=== PATIENT | female | born 1980 | race Hispanic/Latino ===

== ENCOUNTER 2016-09-22 01:28 | Inpatient (IN) | payer MEDICAID ==
[~2016-09-22] VITALS: Ht 152.4 cm; Wt 68.5 kg
[2016-09-22] MEDS ORDERED: Lactated Ringer's 1,000 ML IV PRN (09:14)
[2016-09-22] MEDS ORDERED: Oxytocin 10 Unit/mL Inj IM PRN (09:15)
[2016-09-22] MEDS ORDERED: Hemorrhage Kit, Post Partum XX ONE (09:15)
[2016-09-22] MEDS ORDERED: Oxytocin 30 Units/500 mL LR 30 UNITS in IV Premix 1 EACH IV PRN (09:15)
[2016-09-22] MEDS ORDERED: Carboprost 250 mCg/mL Inj IM PRN (09:15)
[2016-09-22] MEDS ORDERED: Sodium Chloride LOK Flush 10 mL Syringe IVFLUSH PRN (09:15)
[2016-09-22] MEDS ORDERED: diphenhydrAMINE 50 mg Capsule PO PRN (09:15)
[2016-09-22] MEDS ORDERED: Methylergonovine 0.2 mg/mL Inj IM PRN (09:15)
[2016-09-22] MEDS ORDERED: Ondansetron 2 mg/mL 2 mL Inj IVPUSH PRN (09:15)
[2016-09-22 13:15] LABS: Mean Corpuscular Hemoglobin 33.8 pg (27.0-35.0); Mean Corpuscular Volume 97.1 fL (81-100)
[2016-09-22] MEDS: Lactated Ringer's 1,000 ML IV SCH ×3 (16:11→22:38)
--- NOTE | 2016-09-22 18:36 | HP ---
[address] [address] HISTORY AND PHYSICAL PATIENT: DIPTI ROSALES : 1980 MR#: [id number] ADMIT: 09/22/2016 JOB ID: [id number] DATE: 09/22/2016 ADMISSION DIAGNOSIS: Induction of labor at 41 weeks and 1 day gestational age for trial of labor after section. HISTORY OF PRESENT ILLNESS: The patient is a 36-year-old 5, para 3-0-1-4 at 41 weeks and 1 day gestational age by 14 weeks ultrasound. Had her complicated with the followin. Primary low transverse for twin gestation in 2002 preceded by two successful vaginal deliveries at term in 2002 and 2004. 2. History of elective termination of at 12 weeks with suction D and C. 3. The patient initially desired permanent sterilization and consents were signed but then she changed her mind. 4. SHAMAR of 7.3 cm on September 14, 2016 at 40 weeks gestational age. Patient opted to proceed with induction of labor. She is interested in trial of labor after section. Consent signed for TOLAC and induction of labor. All questions answered. The patient denied any leakage of fluid, vaginal bleeding, no contractions. She reports movements. PAST OBSTETRICAL HISTORY: 1-In 2002, a full-term ended with spontaneous vaginal delivery home in [place]. 2-In 2004, full-term ended with spontaneous vaginal delivery in [place] 6 pound baby, female. No complications. 3- (2012), twin gestation ended at 37 weeks with primary low transverse section at [facility]. No complications. 4- (2013), a 12 week ended with elective termination of and suction D and C, and the current . PAST GYNECOLOGIC HISTORY: No history of abnormal Pap smears. No history of STDs. PAST MEDICAL HISTORY: Heartburn. PAST SURGICAL HISTORY: Primary section x1 and suction D and C x1. MEDICATIONS: vitamins. ALLERGIES: No known drug allergies. SOCIAL HISTORY: Denied any alcohol consumption. Denied any drugs of abuse. Denied any cigarette smoking. LABORATORIES: O-positive, rubella immune, serology nonreactive, hepatitis B surface antigen negative. HIV nonreactive. Gonorrhea, chlamydia cultures negative. Antibody screen negative. Rubella immune. QUAD screen negative. GBS cultures negative. Pap smear negative cytology, negative high-risk HPV. Urine cultures negative. PHYSICAL EXAMINATION: Patient is alert, oriented x3. Vital signs are 111/74 for blood pressure, respirations are 14, pulse is 78, temperature 36.5 degrees centigrade. Heart is regular rate and rhythm. Positive S1, S2. Lungs clear to auscultation bilaterally. Abdomen: Gravid uterus, nontender. Positive bowel sounds. Lower extremities: No calf tenderness appreciated bilaterally. Cervical exam: 2 cm dilated cervix, 50% effaced, -3 station. Vertex presentation. Posterior position medium consistency. heart tracing is showing baseline of 130 beats per minute, positive accelerations, no decelerations, moderate variability, reactive tracing. Discussed induction options with the patient in light of her prior section. She agreed to proceed with cervical ripening balloon. Gannon's score at the time of the induction was 3. Cervical ripening balloon was inserted. 80 cc of normal saline injected in the uterine balloon, and then 80 cc injected in the vaginal balloon. The patient tolerated the insertion well. Will keep the balloon for 12 hours or less if the balloon falls out earlier and will follow with Pitocin. ASSESSMENT/PLAN: The patient is a 36-year-old, 5, para 3-0-1-4 at 41 weeks and 1 day gestational age by 14 week ultrasound. Prior section x1 preceded by two successful vaginal deliveries at term. Patient consented for trial of labor after section. 1- Induction of labor started with cervical ripening balloon to be followed by Pitocin. 2. Group B strep cultures negative. 3. Reactive heart tracing. Will continue with external monitoring. 4. Discussed intrapartum analgesia options with the patient. She opted for epidural anesthesia, anesthesia notified. All the above discussed in details with the patient including risks for uterine rupture and success rate for trial of labor after . The patient agreed to the above. A hospital-provided hvac mechanical engineer helped with counseling. CARLOS
[2016-09-22] MEDS ORDERED: Lidocaine 1% 50 mL Inj NERVEBLOCK ONE (20:20)
--- NOTE | 2016-09-22 22:06 | PCM.PNOBIP ---
Subjective Date of Service Sep 22, 2016 Subjective Requesting epidural. Group B Strep Results: Negative Rubella: Immune Blood Type: O (positive) RH Type: Positive Labs Laboratory Tests 09/22/16 07:40: White Blood Count 6.4, Red Blood Count 4.17, Hemoglobin 14.1, Hematocrit 40.5, Mean Corpuscular Volume 97.1, Mean Corpuscular Hemoglobin 33.8, Mean Corpuscular Hemoglobin Concent 34.8, Red Cell Distribution Width 13.0, Platelet Count 117 Exam Vital Signs Vital Signs Contraction frequency in minutes: MVUs: Vital Signs: VS reviewed, stable Heart Tracings Heart Tones Baseline 140 bpm Heart Rate Variability: Moderate Heart Rate Accelleration: Present Heart Rate Deceleration: Absent Heart Rate Category: I Tocometry/IUPC Contraction frequency in minutes: MVUs: Sterile Vaginal Exam Cervical Dilation: 5 cms (5-6) Cervical Effacement: 50 % Station: -3 Exam Abdomen: Abdomen non-tender General: Alert, Oriented X3 OB Intrapartum Assessment/Plan Assessment 36 Y/O at 40w1d IOL for late term . TOLAC (previous CD for twins after 2 ) Desires Epidural S/P Aguirre balloon, fill down at 1545 and Pitocin was started at 1600. Continue to increase Pitocin per low dose protocol maximum dose 20 milliunit. Continue FHT and [place] monitoring. Aaliyah Mclaughlin MD Sep 22, 2016 22:06
[2016-09-22] MEDS ORDERED: Lactated Ringer's 500 ML IV ONE (22:12)
[2016-09-22] MEDS ORDERED: EPHEDrine Sulfate 50 mg/mL Inj IVPUSH PRN (22:15)
[2016-09-22] MEDS ORDERED: fentaNYL 2 mCg/mL-Bupiv 0.125% 100 ML EPIDURAL SCH (22:15)
[2016-09-22] MEDS ORDERED: Atropine 1 mg/10 mL (Code) Syringe IVPUSH PRN (22:15)
--- NOTE | 2016-09-22 22:15 | PCM.HPANE ---
Patient Data Surgeon Admitting Provider:Timo Curiel MD Attending Provider:Timo Curiel MD Primary Care Physician:Aaliyah Mclaughlin MD Other Provider:Alisia Dozier Anesthesia Reason for Visit Induction INDUCTION Ht/WT & BMI Body Mass Index Allergies Coded Allergies: No Known Allergies (Unverified , 03/06/12) History Smoking Status: Unknown if Ever Smoker Stop/Bang Risk Assessment Category Category 1A: Patient has history of documented sleep apnea, and HAS NOT received any narcotic, sedative or anesthesia administration during this stay. Category 1B: Patient has history of documented sleep apnea, and HAS received any narcotic , sedative or anesthesia administration during this stay Category 2: Patient has SUSPECTED Obstructive Sleep Apnea, and HAS received any narcotic , sedative or anesthesia administration during this stay. Category 3: Patient has SUSPECTED Obstructive Sleep Apnea and HAS NOT received narcotic, sedative or anesthesia administration during this stay. Category 4: Outpatient in Procedural Areas with known sleep apnea or who screen positive for High Risk via the STOP/BANG questionnaire. Exam Exam General Appearance: Alert, Oriented X3, Cooperative, No Acute Distress HEENT/AIRWAY: MP 2 Lungs: Clear to Auscultation, Normal Air Movement Heart: Exam Unremarkable, Regular Rate/Rhythm, No Murmurs/Rubs/Gallops Meds/Labs/Diagnostics Admission Meds Current Medications Lactated Ringer's (Lr) 1,000 ml @ 125 mls/hr Q8H IV Last administered on t 20:38; Start 09/22/16 at 09:11 Labs Test 09/22/16 07:40 White Blood Count 6.4th/mm3 (3.8-10.1) Red Blood Count 4.17mil/mm3 (3.90-5.20) Hemoglobin 14.1g/dL (12.0-15.6) Hematocrit 40.5% (35.0-46.0) Mean Corpuscular Volume 97.1fL (81-100) Mean Corpuscular Hemoglobin 33.8pg (27.0-35.0) Mean Corpuscular Hemoglobin Concent 34.8% (32.0-37.0) Red Cell Distribution Width 13.0% (12.3-15.4) Platelet Count 117bil/L (150-400) Plan Impression Patient chart reviewed, patient interviewed and anesthestic plan with risks, benefits, and alternatives discussed, and informed consent obtained. ASA Physical Status: ASA1 Normal Healthy Anesthetic Plan: Epidural Bene/Risks/Altern/Consents: Yes HP Complete Prior to Induction: Yes Other Term multip induction TOLAC, uncomplicated to date in active labor requesting epidural analgesia Lcai Olivo MD Sep 22, 2016 22:15
[2016-09-23] MEDS: Lactated Ringer's 1,000 ML IV SCH ×2 (01:11→06:12)
[2016-09-23] MEDS ORDERED: Lactated Ringer's 1,000 ML IV SCH (05:27)
[2016-09-23] MEDS ORDERED: Witch Hazel-Glycerin Pads TOPICAL PRN (05:30)
[2016-09-23] MEDS ORDERED: Methylergonovine 0.2 mg/mL Inj IM PRN (05:30)
[2016-09-23] MEDS ORDERED: Carboprost 250 mCg/mL Inj IM PRN (05:30)
[2016-09-23] MEDS ORDERED: Benzocaine (Dermoplast) 20% 60 Gm Spray TOPICAL PRN (05:30)
[2016-09-23] MEDS ORDERED: Oxytocin 10 Unit/mL Inj IM PRN (05:30)
[2016-09-23] MEDS ORDERED: Oxytocin 30 Units/500 mL LR 30 UNITS in IV Premix 1 EACH IV PRN (05:30)
[2016-09-23] MEDS ORDERED: Hemorrhage Kit, Post Partum XX ONE (05:30)
[2016-09-23] MEDS: Ascorbic Acid 500 mg Tablet PO SCH ×2 (07:27→21:12)
[2016-09-23] MEDS: LANOlin HPA 7 Gm Ointment TOPICAL PRN (07:28)
--- NOTE | 2016-09-23 16:10 | OP ---
[address] [address] OPERATIVE REPORT PATIENT: DIPTI ROSALES : 1980 MR#: [id number] ADMIT: 09/22/2016 JOB ID: [id number] DATE OF SURGERY: 09/23/2016 PREOPERATIVE DIAGNOSIS(ES): 1. Intrauterine at 41 weeks and 2 days. 2. Previous section x1 for twin gestation preceded by two successful vaginal deliveries at term. 3. Desires trial of labor after section. POSTOPERATIVE DIAGNOSIS(ES): Status post vaginal after section. PROCEDURE: 1. Vaginal after section. 2. Repair of second-degree perineal laceration. ANESTHESIA: Epidural. SURGEON: Aaliyah Mclaughlin MD. COMPLICATIONS: None. ESTIMATED BLOOD LOSS: 400 mL. OUTCOME: Male infant delivered in right occiput anterior position with no nuchal cord. Apgars 9 and 9 at one and five minutes, respectively. Weight 3707 g, equivalent to 8 pounds 3 ounces. DESCRIPTION OF PROCEDURE: This is a 36 years old, 5, now para 4-0-1-5. The patient was admitted on September 22, 2016, at 41 weeks and 1 day gestation for induction of labor for late term with previous history of one section done for twin gestation and was preceded by two successful vaginal deliveries at term. At admission, Gannon score was 3. Cervical ripening was started with Aguirre balloon that was placed at 8:30 a.m. The Aguirre balloon fell out at 1545. Pitocin was started at 1604. The patient progressed in labor and found to be 6 cm dilated, 60% effaced, and -1 at 1:43 a.m. of September 23, 2016. Artificial rupture of membranes was performed at 3 a.m. Cervix was 6, 80% and -1. The patient progressed to complete dilation and was at zero station at 4:12 a.m. With pelvic pressure and urge to push, the patient started to push under epidural anesthesia and delivered after pushing through 4-5 contractions. Delivered at 4:33 a.m. on September 23, 2016, over an intact perineum. Delivered a male infant in right occiput anterior position with no nuchal cord. Shoulders delivered without difficulty. Infant was placed on the maternal abdomen. Delayed cord clamping was performed after 1 minute. Cord blood was collected for typing. heart tones throughout labor were at most category 1 with variable decelerations during the second stage of labor with pushing during the last four contractions. was vigorous with a strong cry. Apgars were 9 at one minute and 9 at five minutes, respectively. Placenta was delivered spontaneously intact with three-vessel cord at 4:49 a.m. Oxytocin was started. Estimated blood loss 400 mL. Misoprostol was placed rectally, 800 mcg. Uterus was firm. Bleeding was minimal at this point. Perineal laceration of second-degree along the line of a previous medial lateral episiotomy scar was noted. The perineal laceration was repaired with a 3-0 Vicryl after local anesthesia with 1% lidocaine. All instruments, needles and sponges were correct x2. The patient and were recovering in the delivery room in a stable condition. Aaliyah Mohr MD, was present and scrubbed for the entire procedure. CARLOS
[2016-09-24] MEDS: oxyCODONE-Acetamin 5-325 mg Tablet PO PRN ×2 (00:21→11:15)
[2016-09-24 07:05] LABS: Mean Corpuscular Hemoglobin 34.2 pg (27.0-35.0)
--- NOTE | 2016-09-24 08:34 | PCM.DIOB ---
Obstetrical Disch Instruction Date of Service: Sep 24, 2016 Dates of Hospitalization Date of Hospital Admission Sep 22, 2016 at 07:16 Providers Admitting Physician: Timo Curiel MD Primary Care Physician: Aaliyah Mclaughlin MD Attending Physician: Timo Curiel MD Discharge Diagnosis Discharge Diagnosis status post successful vaginal delivery after section. Problems: Diet Discharge Diet: No restrictions Activity Discharge Activity-General: Pelvic Rest for 6 weeks, No lifting >10 pounds for 4-6 weeks Dressing and Incisional Care Hygiene: May shower, Perineal care, Sitz bath Follow Up Plan Follow-up Provider (F9): Timo Curiel MD Follow-up appointment: Weeks Call your provider for: Fever or Chills, Shortness of breath, Heavy vaginal bleeding, Heavy bleeding, Epigastric pain, Excessive constipation, Vaginal discomfort, Red painful breasts, Other (headache, change in vision, nausea or vomiting, leg swelling pain) Aaliyah Mclaughlin MD Sep 24, 2016 08:34
[2016-09-24] MEDS ORDERED: OXYC1TAB24 PO (08:36)
[2016-09-24] MEDS ORDERED: IBUP-1827 PO (08:36)
[2016-09-24] MEDS ORDERED: DOCU-41 PO (08:36)
[2016-09-24] MEDS: Ascorbic Acid 500 mg Tablet PO SCH (11:48)
[2016-09-24] MEDS: LANOlin HPA 7 Gm Ointment TOPICAL PRN (11:48)
[2016-09-24 12:21] VITALS: BP 108/67; PULSE 84; RESP 20
--- NOTE | 2016-09-24 13:06 | PCM.DC.OB ---
Obstetrical Discharge Summary Date of Service Sep 24, 2016 Date of hospital admission Sep 22, 2016 at 07:16 Date of Discharge: Sep 24, 2016 Providers Admitting Physician: Timo Curiel MD Primary Care Physician: Cindy Ray MD Attending Physician: Timo Curiel MD Hospital Course: The patient is a 36-year-old 5, now para 4-0-1-5 presented at at 41 weeks and 1 day gestational age for induction of labor. Status Post: 1. Vaginal after section. 2. Repair of second-degree perineal laceration. OUTCOME: Male delivered in right occiput anterior position with no nuchal cord. Apgars 9 and 9 at one and five minutes, respectively. Weight 3707 g, equivalent to 8 pounds 3 ounces.See delivery note for details. Complicated With: 1. Primary low transverse for twin gestation in 2002 preceded by two successful vaginal deliveries at term in 2002 and 2004. 2. History of elective termination of at 12 weeks with suction D and C. 3. The patient initially desired permanent sterilization and consents were signed but then she changed her mind towards the end of her and declined tubal sterilization. 4. SHAMAR of 7.3 cm on September 14, 2016 at 40 weeks gestational age. Discharge Day Exam: day number 1, patient is ambulating, tolerating regular diet without nausea or vomiting and voiding without difficulty. Pain was well controlled. No chest pain, no headache or change in vision. VS: stable. BP 108/67 HR 84 Respirations 20 Temp 37.4 General: Alert, Oriented X3 Lungs: Clear to Auscultation, Clear to Percussion Heart: Regular Rate/Rhythm, Normal S1, Normal S2 Abdomen: Fundus firm Extremities: No tenderness/swelling, Edema 1+ Lochia: normal. LABS: O-positive, rubella immune, serology nonreactive, hepatitis B surface antigen negative. HIV nonreactive. Gonorrhea, chlamydia cultures negative. Antibody screen negative. Rubella immune. A 1 hour glucose screening test negative, quad screen negative. GBS cultures negative. Pap smear negative cytology, negative high-risk HPV. Urine cultures negative. CBC Test 09/24/16 06:35 White Blood Count 7.6th/mm3 (3.8-10.1) Red Blood Count 3.42mil/mm3 (3.90-5.20) Hemoglobin 11.7g/dL (12.0-15.6) Hematocrit 33.5% (35.0-46.0) Mean Corpuscular Volume 98.0fL (81-100) Mean Corpuscular Hemoglobin 34.2pg (27.0-35.0) Mean Corpuscular Hemoglobin Concent 34.9% (32.0-37.0) Red Cell Distribution Width 12.7% (12.3-15.4) Platelet Count 113bil/L (150-400) Docusate Sodium (Colace) 100 Mg Capsule 100 MG PO DAILY Prescribed by: CINDY RAY MD Ibuprofen (Ibuprofen) 600 Mg Tablet 600 MG PO QID PRN PRN For Pain Prescribed by: CINDY RAY MD oxyCODONE-Acetaminophen 5-325 mg (oxyCODONE-Acetaminophen 5-325 mg) 1 Each Tablet 1-2 TAB PO Q4H PRN PRN For Pain Prescribed by: CINDY RAY MD Disposition Disposition: home. Discharge Condition: stable Discharge Diagnosis Discharge Diagnosis status post successful vaginal delivery after section. Diet Discharge Diet: No restrictions Activity Discharge Activity-General: Pelvic Rest for 6 weeks, No lifting >10 pounds for 4-6 weeks Dressing and Incisional Care Hygiene: May shower, Perineal care, Sitz bath Follow Up Plan Follow-up Provider (F9): Timo Curiel MD Follow-up appointment: Weeks Call your provider for: Fever or Chills, Shortness of breath, Heavy vaginal bleeding, Heavy bleeding, Epigastric pain, Excessive constipation, Vaginal discomfort, Red painful breasts, Other (headache, change in vision, nausea or vomiting, leg swelling pain) Cindy Ray MD, Omaima A MD Sep 24, 2016 13:06
== END 2016-09-24 13:54 | disposition home or self-care (01) | DRG 775 ==
LOC: FBC 07:16
PROVIDERS: ADMIT Obstetrics & Gynecology; ATTEND Obstetrics & Gynecology
PROC: 10D07Z8 Extraction of Products of Conception, Other, Via Natural or Artificial Opening (ICD-10-PCS; principal; 2016-09-23)
PROC: 0KQM0ZZ Repair Perineum Muscle, Open Approach (ICD-10-PCS; 2016-09-23)
PROC: 3E033VJ Introduction of Other Hormone into Peripheral Vein, Percutaneous Approach (ICD-10-PCS; 2016-09-23)
DX: O34.211 Maternal care for low transverse scar from previous cesarean delivery (principal); O70.1 Second degree perineal laceration during delivery; Z37.0 Single live birth; Z3A.41 41 weeks gestation of pregnancy